=== PATIENT | female | born 1960 | race Asian ===

== ENCOUNTER → 2016-06-27 | Outpatient (CLI) | payer OTHER ==
--- NOTE | 2016-06-27 14:00 | MA ---
Screening Digital Mammogram Clinical Indications: Routine screening. Technique: Standard cephalocaudal and mediolateral oblique projections are obtained. This examinati on is processed by the [employer] computer aided detection system. Comparison: February 2014, January 2013, February 2012 and December 2010 Breast density: B; There are scattered fibroglandular densities. Findings: CAD was reviewed. Developing density with possible architectural distortion upper outer rig ht breast. The remainder of the right and left breast are stable. Impression: Possible abnormal mass upper outer right breast. BI-RADS 0. Additional imaging right breast. Recommendation: Spot compression views and ultrasound for further evaluation.. [facility] will send a result letter to the patient. Negative mammography should not preclude additional workup of a clinically suspicious finding. The patient's information is entered into a reminder system with a target due date for her next mammo gram.
== END ==
LOC: BRMIMAGING 13:17
DX: Z12.31 Encounter for screening mammogram for malignant neoplasm of breast (principal)
CPT/HCPCS: G0202

== ENCOUNTER → 2016-07-13 | Outpatient (CLI) | payer OTHER | LOC: BRMIMAGING 09:00 | PROVIDERS: ATTEND Family Medicine | DX: R92.2 Inconclusive mammogram (principal) | CPT/HCPCS: 76641-PO; G0206 ==